=== PATIENT | male | born 1995 | race Caucasian/White ===

== ENCOUNTER 2024-05-15 15:05 | Emergency (ER) | payer BC, SELFPAY ==
[2024-05-15 15:07] VITALS: BP 130/97; PULSE 82; RESP 18; TEMP 36.3; O2SAT 98; BMI 32.6
--- NOTE | 2024-05-15 15:37 | EX.ED.VIS.EY ---
HPI History of Present Illness Chief Complaint: Eye Problem Narrative Narrative: Chief complaint and HPI: Intermittent right eye pain. 28-year-old male with no significant past medical history presents for evaluation of intermittent right eye pain. Patient states for the past 2 weeks he has been having intermittent pain in his right eye. He states that it periodically feels like there is something in his eye. He states that he has been periodically flushing his eye with water. He states that the pain is worse in the morning after he wakes up. He states it then disappears during the day. Intermittent photophobia when his eye hurts. Denies any known injury to the eye or foreign object in the eye. Does not wear glasses or contacts. Does not follow with an eye doctor. Denies any headache, nausea, vomiting, blurry vision, loss of vision, URI symptom, fever. Review of systems: See HPI Medications: As listed on the chart Allergies: As listed on the chart PFSH: Per chart Vital signs: As listed on the chart. Reviewed. Physical exam: Gen: A&O x3, NAD Head: Normocephalic, atraumatic Eye: Right eye has mild injection of the sclera, no periorbital swelling or ecchymosis, no proptosis, no pain with extra ocular movements, EOMI intact, no lacerations, no sclera chemosis, no foreign body, no teardrop pupil, no enophthalmos, optic discs were visualized and normal in appearance, a fluorescein dye was instilled and under UV light no uptake was identified, negative Seidels sign. Intraocular pressures were normal at 17 bilateral. Visual Acuity 20/20 bilateral, 20/20 left eye, 20/30 right eye ENT: Moist mucous membranes, no facial tenderness, no temporal artery tenderness Neck: Trachea midline, No JVD, full range of motion CV: Regular rate Resp: Unlabored respiratory Musc: Full ROM, no deformity Skin: Warm, dry Neuro: Alert, oriented, grossly intact, sensation intact Psych: Cooperative, appropriate mood and affect PFS PFS Medical History no medical history Home Medications ?Medication ?Instructions ?Recorded ?Last Taken ?Type NK 05/15/24 Unknown History Allergy/AdvReac Type Severity Reaction Status Date / Time No Known Allergies Allergy Verified 05/15/24 15:07 Surgical History no surgical history Social History Smoking Status: Never smoker EXAM Physical Exam Const Vital Signs: 05/15/24 15:07 Temperature 97.4 F L Temperature Source Temporal Pulse Rate 82 Respiratory Rate 18 Blood Pressure 130/97 H Blood Pressure Mean 108 Pulse Ox 98 Oxygen Delivery Method Room Air MDM MDM MDM Narrative Medical decision making narrative: 28-year-old male with no significant past medical history presents for evaluation of intermittent right eye pain. Denies any injury or foreign body in the eye that he remembers. Pain has been intermittent for 2 weeks. Does not wear contacts or glasses. No past medical history. See physical exam findings. Right eye exam is unremarkable except for mild injection of the sclera. No corneal abrasion. No foreign object. Pressures normal. At this point in time no clear etiology for patient's intermittent right eye pain. May be conjunctivitis versus dry eyes versus irritation from water irrigation. Patient will be placed on. Erythromycin ointment for possible conjunctivitis. Follow-up with the eye doctor. Return precautions explained. Patient confirmed understanding of plan. Patient stable to discharge home. Impression: 1. Right eye pain Discharge Plan Triage Chief Complaint: Eye Problem ED Provider: Dane Vazquez Dx/Rx/DC Orders Prescriptions: No Action NK Primary Care Provider: Care Physician,No Primary Print Language: Sudanese
[2024-05-15] MEDS: Fluorescein 1 MG STRIP 1 STRIP OPHTHALMIC (15:47)
[2024-05-15] MEDS: Tetracaine 0.5% Ophthalmic Bottle 1 DRP OPHTHALMIC (15:48)
== END 2024-05-15 16:03 | disposition home or self-care (01) ==
PROVIDERS: Emergency Provider Surgery; Visit Provider Surgery
DX: H57.11 Ocular pain, right eye (principal)
CPT/HCPCS: 99283